=== PATIENT | female | born 1975 | race Caucasian/White ===

== ENCOUNTER 2017-03-07 13:27 | Emergency (ER) | payer OTHER ==
[~2017-03-07] VITALS: Ht 157.5 cm; Wt 65.8 kg
[~2017-03-07 13:27] MED LIST: ATIVAN PO; FLEXERIL10 MG PO; IRON1 TAB PO; MULTI-VITAMIN1 TAB PO; MULTIVITAMIN1 UDCAP; PHENERGAN/CODEIN5 ML PO; PHENERGAN25 MG PO; POLYSACC IRON150 MG PO; PROBIOTIC1 EACH; TYLENOL #3 PO; VOLTAREN75 MG PO; ZITHROMAX PO; [UNRECOGNIZED DRUG - OTHER]
[2017-03-07] MEDS ORDERED: NO MEDICATIONS (13:34)
== END 2017-03-07 14:41 | disposition home or self-care (01) ==
LOC: SED 13:27
DX: M77.12 Lateral epicondylitis, left elbow (principal); F17.210 Nicotine dependence, cigarettes, uncomplicated; Z98.51 Tubal ligation status
CPT/HCPCS: 99283